=== PATIENT | male | born 1970 | race Caucasian/White ===

== ENCOUNTER 2020-11-11 19:37 | Emergency (ER) | payer MEDICAID, SELFPAY ==
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
--- NOTE | ~2020-11-11 | CT_ITS ---
EXAMINATION: CT HEAD WITHOUT CONTRAST CT CERVICAL SPINE WITHOUT CONTRAST CLINICAL INFORMATION: Trauma. Loss of consciousness COMPARISON: None. TECHNIQUE: Imaging was performed from the skull base to vertex without intravenous administration of contrast. In addition, helical noncontrast CT imaging was acquired through the cervical spine and source images were reviewed along with axial reconstructions and sagittal and coronal MPRs. [This CT examination was performed using dose optimization techniques as appropriate, variously including the following: *Automated exposure control *Adjustment of mA and/or kV according to patient size (this includes techniques or standardized protocols for targeted exams where dose is matched to indication/reason for exam; i.e. extremities or head) *Use of iterative reconstruction technique] DLP: 1602 mGy-cm FINDINGS: HEAD: No intracranial mass, hemorrhage, or midline shift is visualized. The ventricles and sulci are proportional. No extra-axial collections are identified. The paranasal sinuses and mastoid air cells are well aerated. CERVICAL SPINE: There is no evidence of acute cervical spine fracture. Vertebral bodies remain normal in height. Cervical vertebrae have normal alignment. There is multilevel degenerative spondylosis of the cervical spine with disc height narrowing and endplate spurs and facet joint arthrosis No pre- or paravertebral soft tissue abnormality is identified. Limited assessment of the lung apices is unremarkable. CT/CT cervical spine wo con IMPRESSION: 1. No acute intracranial pathology. 2. No CT evidence of acute cervical spine fracture or traumatic subluxation
[2020-11-11 19:39] VITALS: BP 122/73; BP 132/70; PULSE 71; PULSE 75; RESP 16; TEMP 36.5; O2SAT 96; O2SAT 98; BMI 21.9
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
[2020-11-11] MEDS: Lidocaine HCl 2 % MPF 5 ML VIAL 10 ML INFILTRATI (20:02)
[2020-11-11] MEDS: traMADoL HCL 50 MG TABLET PO (20:02)
[2020-11-11 21:01] VITALS: RESP 18
[2020-11-11 22:00] VITALS: BP 111/72; PULSE 75; RESP 18; TEMP 36.7; O2SAT 99
== END 2020-11-11 23:56 | disposition home or self-care (01) ==
PROVIDERS: Emergency Provider Emergency Medicine
DX: F10.129 Alcohol abuse with intoxication, unspecified (principal); Y90.9 Presence of alcohol in blood, level not specified; S01.111A Laceration without foreign body of right eyelid and periocular area, initial encounter; V18.0XXA Pedal cycle driver injured in noncollision transport accident in nontraffic accident, initial encounter; Y93.55 Activity, bike riding; Y92.9 Unspecified place or not applicable; Y99.9 Unspecified external cause status
CPT/HCPCS: 12053; 70450; 72125; 99284

== ENCOUNTER 2020-11-21 11:03 | Emergency (ER) | payer MEDICAID, SELFPAY ==
[2020-11-21 11:23] VITALS: BP 163/93; PULSE 75; RESP 17; TEMP 36.7; O2SAT 97; BMI 24.3
--- NOTE | 2020-11-21 12:07 | ED.GENADULT ---
HPI - General Adult General Chief complaint: General Medical Stated complaint: suture removal Time Seen by Provider: 11/21/20 12:07 History of Present Illness HPI narrative: patient presents for removal of forehead sutures placed 7 days ago, no complaint Related Data Allergies Allergy/AdvReac Type Severity Reaction Status Date / Time No Known Allergies Allergy Verified 11/21/20 11:22 Review of Systems Review of Systems: negatives are no fever no chills no discharge from the wound no swelling no pain no redness no skin rash Yes all other systems are reviewed and are negative [facility] Past Medical History Source: nursing notes reviewed Medical History Alcohol abuse Social History Social History Advance Directives: Yes Advance Directives Information Provided: Yes Advance Directives on File: No Physical Exam Vital Signs: Vital Signs: Last Vital Signs Temp 98.0 F 11/21/20 11:23 Pulse 75 11/21/20 11:23 Resp 17 11/21/20 11:23 BP 163/93 H 11/21/20 11:23 Pulse Ox 97 11/21/20 11:23 Body Mass Index 24.3 general appearance no distress There is a suture line on the left mid forehead with sutures in place, wound is closed there is no redness no warmth no discharge from the wound no tenderness The neck is supple The respiratory no distress the extremities full range of motion x4 Neuro the patient is A&O x3 communicating both expression and comprehension normally and gait and balance are normal Course Course Course Narrative: sutures are removed, no wound dehiscence no discharge from wound no sign infection
== END 2020-11-21 12:15 | disposition home or self-care (01) ==
PROVIDERS: Emergency Provider Emergency Medicine Emergency Medical Services
DX: Z48.02 Encounter for removal of sutures (principal)
CPT/HCPCS: 99283

== ENCOUNTER 2023-04-12 19:59 | Emergency (ER) | payer MEDICAID, SELFPAY ==
--- NOTE | 2023-04-12 | ECG_ITS ---
Test Reason : CHESTPAIN Blood Pressure : / mmHG Vent. Rate : 062 BPM Atrial Rate : 062 BPM P-R Int : 146 ms QRS Dur : 082 ms QT Int : 436 ms P-R-T Axes : 062 000 058 degrees QTc Int : 442 ms Sinus rhythm with Premature atrial complexes Nonspecific T wave abnormality Abnormal ECG No previous ECGs available Referred By: Generic ED Physician Electronically Signed By:YUDITH PAK MD
--- NOTE | 2023-04-12 | ECG_ITS ---
Test Reason : CHEST PAIN Blood Pressure : / mmHG Vent. Rate : 061 BPM Atrial Rate : 061 BPM P-R Int : 150 ms QRS Dur : 084 ms QT Int : 428 ms P-R-T Axes : 069 029 072 degrees QTc Int : 430 ms Normal sinus rhythm with sinus arrhythmia Normal ECG When compared with ECG of 12-APR-2023 20:10, Premature atrial complexes are no longer Present Referred By: Opal Hart Electronically Signed By:YUDITH PAK MD
--- NOTE | ~2023-04-12 | CT_ITS ---
EXAMINATION: CTA CHEST CLINICAL INFORMATION: Chest pain and dizziness with hypotension COMPARISON: None TECHNIQUE: Multidetector volumetric CT imaging of the chest was obtained both before as well as after the administration of 65 mL of Omnipaque 350 intravenous contrast without immediate adverse reactions. Axial MIP volume rendering provided. Sagittal and coronal reformatted images were obtained. Additional 2-D coronal and sagittal reformatted images and axial 3-D maximum intensity projection MIP images are generated on the CT workstation. This CT examination was performed using dose optimization techniques as appropriate, variously including the following: *Automated exposure control *Adjustment of mA and/or kV according to patient size (this includes techniques or standardized protocols for targeted exams where dose is matched to indication/reason for exam; i.e. extremities or head) *Use of iterative reconstruction technique DLP: 257 mGy-cm VASCULAR FINDINGS: There is a DeBakey type I dissection (or Agenda type A) involving the entire aorta which begins at the level of the aortic valve. In the ascending aorta, the true lumen is markedly compressed by the false lumen. Maximum diameter of the entire aorta perpendicular to a center line is 4.4 cm. The true lumen remains small in the transverse arch. Blood is present in the anterior mediastinum extending out along the right main pulmonary artery and to a lesser extent on the left. There is a three-vessel branching pattern of the arch with the dissection extending into the vessels with poor opacification distally especially of the brachiocephalic artery which shows barely any opacification. The left carotid and the left subclavian have small patent true lumens. The dissection continues down into the abdominal aorta which is partially included on this chest CTA. The true lumen is compressed by the thrombosed false lumen. Both the celiac and the SMA arises from the true lumen and are widely patent without extension of the dissection. Single renal arteries are partially included in this study on each side which also arise only from the true lumen. The left renal artery is widely patent. There is some narrowing of the proximal right renal artery with probable extension of a dissection flap, although not optimally visualized. NONVASCULAR FINDINGS: LUNGS: The lungs are clear with no evidence of inflammation or nodules. Some mild bibasilar atelectasis is present. MEDIASTINUM: Heart size normal. No mediastinal or hilar lymphadenopathy. As mentioned above, there is dissection of the aorta. There is blood also in the anterior mediastinum in the preaortic region trace pericardial effusion is present which measures water density. CORONARY ARTERY CALCIFICATION: Present PLEURA: There is no pleural effusion. No pleural mass or thickening. AXILLA: No lymphadenopathy. UPPER ABDOMEN: A benign right upper pole Bosniak class I renal cyst is noted which requires no additional imaging or follow up. No solid renal masses are seen. Abdominal aortic dissection as described above. OSSEOUS STRUCTURES: Unremarkable. CT/CT angio chest PE protocol IMPRESSION: 1. Dayo type A (or DeBakey type I) aortic dissection beginning at the level of the aortic valve and extending down into the abdominal aorta. The true lumen is markedly compressed in the ascending aorta. Blood is present in the anterior mediastinum extending out along the right main pulmonary artery and to a lesser extent on the left. 2. The dissection extends into the great vessels with narrowing of the lumens of the left carotid and left subclavian with hardly any flow seen in the right brachiocephalic. 3. The dissection appears to involve the right renal artery ostia with some proximal narrowing. Fleischner guidelines were followed. This critical result was discussed with Dr. Hart immediately after the exam at 8:50 PM and it was ascertained that the content and urgency of the report was understood at the time of direct communication.
--- NOTE | ~2023-04-12 | XR_ITS ---
EXAMINATION: XR CHEST CLINICAL INFORMATION: Chest pain COMPARISON: Thoracic spine 05/02/2006 (report only) TECHNIQUE: Frontal view of the chest was obtained. FINDINGS: Heart size is normal. The mediastinum is markedly widened worrisome for aortic aneurysm/dissection some right mid lung atelectasis is seen. Some left perihilar streaky changes are present. No pleural effusions although the costophrenic angles are not included on the radiograph. XR/XR chest 1V IMPRESSION: Widened mediastinum worrisome for aortic aneurysm/dissection. A CT scan of the chest is recommended for further evaluation.
[2023-04-12 20:05] VITALS: BMI 24.1
[2023-04-12 20:16] LABS: MANUAL DIFF FLAG NO
[2023-04-12 20:17] LABS: Basophils Absolute Auto 0.1 X10*3/uL (0.0-0.2); Basophils Percent Auto 0.3 % (0-2); Eosinophils Absolute Auto 0.2 X10*3/uL (0.0-0.4); Hematocrit 39.9 % (42.0-52.0); Hemoglobin 13.7 g/dl (14.0-18.0); Imm Gran Abs Auto 0.17 X10*3/uL (0.00-0.03); Imm Gran Pct Auto 0.7 % (0.0-0.4); Lymphocytes Absolute Auto 1.7 X10*3/uL (1.2-4.9); Lymphocytes Percent Auto 7.3 % (20-40); Mean Corpuscular HGB Conc 34.3 g/dl (31.0-36.0); Mean Corpuscular Hemoglobin 33.3 pg (27.0-33.0); Mean Corpuscular Volume 97.1 fL (80.0-98.0); Mean Platelet Volume 9.4 fL (9.4-12.4); Monocytes Absolute Auto 1.2 X10*3/uL (0.1-1.2); Monocytes Percent Auto 5.3 % (2-11); Neutrophils Absolute Auto 19.8 x10*3/uL (2.0-8.3); Neutrophils Percent Auto 85.4 % (45-73); Platelet Count 221 X10*3/uL (160-400); Red Blood Count 4.11 X10*6/uL (4.60-5.80); Red Cell Distribution Width 13.4 % (11.0-16.0); White Blood Count 23.2 X10*3/uL (4.8-10.8)
[2023-04-12 20:25] VITALS: BP 66/42; PULSE 57; RESP 16; TEMP 36.5; O2SAT 97
[2023-04-12 20:27] VITALS: BP 108/85; PULSE 75
[2023-04-12 20:33] LABS: Alanine Aminotransferase 12 U/L (0-40); Albumin Level 3.9 g/dL (3.5-5.0); Alkaline Phosphatase 76 U/L (39-117); Anion Gap 15 (12-20); Aspartate Amino Transferase 24 U/L (5-37); Bilirubin Total 0.3 mg/dL (0.0-1.0); Blood Urea Nitrogen 13 mg/dL (9-16); Calcium 9.1 mg/dL (8.4-10.2); Carbon Dioxide 21 mmol/L (22-29); Chloride 105 mmol/L (96-108); Estimated Glomerular Filt Rate > 60; Glucose Random 147 mg/dL (60-115); Sodium 137 mmol/L (135-145); Total Protein 7.1 g/dL (6.5-8.0)
--- NOTE | 2023-04-12 20:33 | ED.CHESTPAIN ---
HPI - Chest Pain General Chief Complaint: Chest Pain Stated Complaint: CHEST PAIN,SOB,NECK PAIN,PALE,DIAPHORETIC Time Seen by Provider: 04/12/23 20:17 Source: patient Mode of arrival: EMS Limitations: no limitations History of Present Illness HPI narrative: 52 yo male smoker was at home eating [employer] pizza when he developed sudden shortness of breath, chest tightness, right shoulder pain, chills and diaphoresis. He does not go to the doctors, he has no medications or known medical problems. He states he felt fine earlier. He was given 324mg of ASA by BLS ambulance. He feels weak and tired now. He denies problems with blood clots or aorta in the past. MD complaint: chest pain Onset (ago): minute(s) (just prior to arrival ) Timing of current episode: constant Prior episodes: No Onset: during rest Pain location: substernal Pain radiation: right shoulder Severity: severe Quality: tightness Relieving factors: nothing Exacerbating factors: nothing Associated symptoms: diaphoresis, dyspnea and sense of impending doom Treatment prior to arrival: aspirin Related Data Allergies Allergy/AdvReac Type Severity Reaction Status Date / Time No Known Allergies Allergy Verified 11/21/20 11:22 Review of Systems Review of Systems: Constitutional : No Weight loss, No Fever, pos Chills ENT/Mouth : No sore throat, No Rhinorrhea Eyes: No Eye Pain, No Swelling Cardiovascular : pos Chest Pain, pos SOB, no Dyspnea on Exertion, No Orthopnea, No Edema, No Palpitations Respiratory : No Cough, No Sputum Gastrointestinal : pos Nausea, No Vomiting, No Diarrhea, No abdominal Pain, No Hematochezia, No Melena Genitourinary : No Dysuria, No Urinary Frequency Musculoskeletal : No joint pain, No Myalgias, No Joint Swelling Skin : No Skin Lesions, No rash, pos diaphoresis Neuro : No Weakness, No Numbness, No Dizziness, No Headache Psych : No Anxiety/Panic, No Depression All other systems reviewed and are negative [facility] Past Medical History Medical History Alcohol abuse Social History Patient Tobacco Use Status: Current everyday Tobacco user Smoked in Last 30 Days: Yes Advance Directives: No Physical Exam Vital Signs: Vital Signs: Last Vital Signs Temp 97.7 F 04/12/23 20:25 Pulse 52 04/12/23 21:12 Resp 16 04/12/23 21:12 BP 90/40 L 04/12/23 21:12 Pulse Ox 97 04/12/23 21:12 O2 Del Method Room Air 04/12/23 21:12 BMI result Body Mass Index 24.1 Appearance: Alert. Oriented X3. Moderate acute distress. Eyes: Pupils equal, round and reactive to light. ENT: Pharynx normal. Neck: Normal inspection. Neck supple. CVS: Normal heart rate and rhythm. Pulses normal. Heart sounds diminished Respiratory: No respiratory distress. Breath sounds normal. Abdomen: Soft and nontender. I can feel femoral pulses R feels less than L Skin: Skin warm and dry. pale skin color. Normal skin turgor. Extremities: No lower extremity edema. No calf ttp Hands and feet are cool to touch Neuro: Oriented X 3. No motor deficit. No sensory deficit. Course Course Course Narrative: call to [facility] [phone] [id number] Cloud - will review images called our Radiologist again to review images they are trying to find radiologist to review images. Reevaluation(s) Reevaluation #1: did notify transfer center at [facility] that images should be uploaded Reevaluation #2: EMS has arrived - [facility] has no ALS waiting on [facility], unable to get [facility] critical care unless patient goes to ICU Reevaluation #3: BP 87/64 HR in 60s still following commands and answering questions 2nd EMS truck has arrived 909pm Medications Administered Discontinued Medications Generic Name Dose Route Start Last Admin Trade Name Ruddyq PRN Reason Stop Dose Admin Fentanyl 25 mcg 04/12/23 20:37 04/12/23 20:42 Fentanyl Citrate/Pf 100 Mcg/2 Ml Vial IVPUSH 04/12/23 20:38 25 mcg ONCE ONE Administration Protocol Sodium Chloride 2,154 mls @ 2,154 mls/hr 04/12/23 20:22 04/12/23 20:41 Ns 30 ml/kg infuse over 1 hr (2154 ml) 04/12/23 21:21 2,154 mls/hr IV Administration .Q1H STA Iohexol 65 ml 04/12/23 20:49 04/12/23 20:51 Iohexol 350 Mg/Ml 100 Ml Infus..Btl IV 04/12/23 20:50 65 ml ONCE ONE Administration Ondansetron HCl 4 mg 04/12/23 20:37 04/12/23 20:46 Ondansetron Hcl 4 Mg/2 Ml Vial IVPUSH 04/12/23 20:38 4 mg ONCE ONE Administration Medical Decision Making Medical Decision Making [facility] Narrative: 52 yo male smoker does not go to the doctors here with abrupt onset chest pain with low BPs - given ASA by [facility] prior to arrival - he describes the pain as tightness, pulses and heart sounds decreased and pulses are not equal sent for stat CTA for chest concern for dissection, IVF ordered, STAT call to thoracic surgery at [facility] after review of CTA by me. Patient aware states there is no one we can talk to or call prior to surgery. Differential Diagnosis Differential Diagnoses: The differential diagnosis associated with the presentation includes aortic dissection, pneumomediastinum, VTE, AMI Admission/Observation Consideration of admission/observation: Escalation of care including admission/observation considered transfer to tertiary center with thoracic surgery Consult Healthcare Provider Management of the patient was discussed with: Tax Agent (thoracic surgery at [facility]) Lab Data [facility] Lab Attestation statement: I reviewed the patient's lab results. 04/12/23 20:12 04/12/23 20:12 Labs: Lab Results 04/12/23 04/12/23 Range/Units 20:12 20:40 WBC 23.2 H (4.8-10.8) X10*3/uL RBC 4.11 L (4.60-5.80) X10*6/uL Hgb 13.7 L (14.0-18.0) g/dl Hct 39.9 L (42.0-52.0) % MCV 97.1 (80.0-98.0) fL MCH 33.3 H (27.0-33.0) pg MCHC 34.3 (31.0-36.0) g/dl RDW 13.4 (11.0-16.0) % Plt Count 221 (160-400) X10*3/uL MPV 9.4 (9.4-12.4) fL Immature Gran % (Auto) 0.7 H (0.0-0.4) % Neut % (Auto) 85.4 H (45-73) % Lymph % (Auto) 7.3 L (20-40) % Gove % (Auto) 5.3 (2-11) % Eos % (Auto) 1.0 (0-4) % Baso % (Auto) 0.3 (0-2) % Lymph # (Auto) 1.7 (1.2-4.9) X10*3/uL Gove # (Auto) 1.2 (0.1-1.2) X10*3/uL Eos # (Auto) 0.2 (0.0-0.4) X10*3/uL Baso # (Auto) 0.1 (0.0-0.2) X10*3/uL Abs Immat Gran (auto) 0.17 H (0.00-0.03) X10*3/uL Absolute Neuts (auto) 19.8 H (2.0-8.3) x10*3/uL Absolute Nucleated RBC 0.000 (0.0-0.012) X10*3/uL Nucleated RBC % (auto) 0.0 (0.0-0.2) /100WBC PT Cancelled INR Cancelled APTT Cancelled Sodium 137 (135-145) mmol/L Potassium 4.0 (3.3-5.1) mmol/L Chloride 105 (96-108) mmol/L Carbon Dioxide 21 L (22-29) mmol/L Anion Gap 15 (12-20) BUN 13 (9-16) mg/dL Creatinine 0.95 (0.5-1.4) mg/dL Estim Creat Clear Calc 87.0 Estimated GFR > 60 Random Glucose 147 H (60-115) mg/dL Lactic Acid 2.7 H* (0.5-2.0) mmol/L Calcium 9.1 (8.4-10.2) mg/dL Total Bilirubin 0.3 (0.0-1.0) mg/dL AST 24 (5-37) U/L ALT 12 (0-40) U/L Alkaline Phosphatase 76 (39-117) U/L Troponin I High Sens 14.3 (<3.5-35.0) ng/L B-Natriuretic Peptide 21 (<100) pg/mL Total Protein 7.1 (6.5-8.0) g/dL Albumin 3.9 (3.5-5.0) g/dL Independent Interpretation I performed an independent interpretation of an: EKG and CT Scan (type A dissection) Interpretation: Rate: 61 Rhythm: NSR [place]: normal Normal P waves. Normal VIDHYA. Normal QRS complex. ST T wave : no GARY, nonspecific ST T wave changes inf leads qTC: normal prior studies: no acute ischemia The study has been interpreted contemporaneously by me. . Radiology Impression Discussion of test interpretation with radiology: I have reviewed the radiologist's reading. Radiologist Impression: spoke to radiologist - dissection involved entire aorta down to valve type A into the neck vessels Critical Care Time Critical Care Time Critical Care Time: Yes Total Critical Care Time: 60 Attestation: repeat assessments, medical consult, IVF, CT read, radiology calls I attest to this time spent taking care of the patient Discharge Plan Discharge Clinical Impression: Aortic dissection Qualifiers: Aortic location: thoracic aorta Thoracic aorta location: ascending aorta Qualified Code(s): I71.010 - Dissection of ascending aorta Patient Disposition: Xfer Acute Care Hospital Transfer Details: [facility] Interventions: Acute Care Transfer Worksheet (ED) Last Done: 04/12/23 21:13 Discharge Date/Time: 04/12/23 21:18
[2023-04-12 20:40] LABS: Troponin-I High Sensitivity 14.3 ng/L (<3.5-35.0)
[2023-04-12 20:41] LABS: B Type Natriuretic Peptide 21 pg/mL (<100)
[2023-04-12] MEDS: SODIUM CHLORIDE 2154 ML IV (20:41)
[2023-04-12] MEDS: fentaNYL citrate/PF 100 MCG/2 ML VIAL 25 MCG IVPUSH (20:42)
[2023-04-12] MEDS: ondansetron HCL 4 MG/2 ML VIAL IVPUSH (20:46)
[2023-04-12 20:48] VITALS: BP 87/64; PULSE 60; RESP 15; O2SAT 97
[2023-04-12] MEDS: iohexoL 350 MG/ML 100 ML INFUS..BTL 65 ML IV (20:51)
--- NOTE | 2023-04-12 20:58 | PC.NURSE ---
called [facility] ED to let them know the pt will be going to OR .
--- NOTE | 2023-04-12 21:00 | PC.NURSE ---
called OR for report they will call back for report
[2023-04-12 21:04] LABS: Lactic Acid 2.7 mmol/L (0.5-2.0)
[2023-04-12 21:12] VITALS: BP 90/40; PULSE 52; RESP 16; O2SAT 97
--- NOTE | 2023-04-12 21:16 | PC.NURSE ---
report given to [facility] OR ,
--- NOTE | 2023-04-12 21:16 | PC.NURSE ---
pt enroute to OR
[2023-04-12 22:46] LABS: Reflex Lactate? Lactic Acid Added
== END 2023-04-12 21:18 | disposition short-term general hospital (02) ==
LOC: HO.ED 21:08
PROVIDERS: Emergency Provider Emergency Medicine
DX: I71.010 Dissection of ascending aorta (principal); R06.02 Shortness of breath; R61 Generalized hyperhidrosis; M25.511 Pain in right shoulder; R07.89 Other chest pain
CPT/HCPCS: 36415; 71045; 71275; 80053; 83605; 83880; 84484; 85025; 87040; 93005; 96374; 96375; 99285; J2405; J3010; Q9967